=== PATIENT | female | born 1950 | race African-American/Black ===

== ENCOUNTER 2019-05-18 11:43 | Inpatient (IN) | payer MEDICARE, OTHER ==
[~2019-05-18] VITALS: Ht 154.9 cm; Wt 46.2 kg
[2019-05-18] MEDS ORDERED: NORVASC5 MG PO (12:39)
[2019-05-18] MEDS ORDERED: CYPROHEPTAD2 MG/5 ML PO (12:39)
[2019-05-18] MEDS ORDERED: DONEPEZIL HCL5 MG PO (12:40)
[2019-05-18] MEDS ORDERED: LINZESS145 MCG PO (12:41)
[2019-05-18] MEDS ORDERED: LEVEMIR IN100 UNITS/ SC (12:41)
[2019-05-18] MEDS ORDERED: COZAAR100 MG PO (12:42)
[2019-05-18] MEDS ORDERED: GEODON20 MG PO (12:42)
[2019-05-18] MEDS ORDERED: MELATONIN5 MG PO (12:42)
[2019-05-18 13:27] LABS: BASOPHILS 0.2 % (0-2); EOSINOPHILS 0.7 % (0-7); HEMATOCRIT 29.8 % (36.0-48.0); HEMOGLOBIN 10.4 g/dL (12-16); LYMPHOCYTES 25.4 % (15-50); MCH 29.9 pg (26.0-34.0); MCHC 34.9 g/dL (31.0-37.0); MCV 85.6 fL (80.0-100.0); MEAN PLATELET VOLUME 10.1 fL (7.4-10.4); MONOCYTES 8.6 % (2-11); NEUTROPHILS 64.1 % (40-80); PLATELET COUNT 165 10x3/uL (130-400); RBC 3.48 10x6/uL (4.00-5.40); RDW 12.5 % (11.5-14.5); WBC 4.2 10x3/uL (4.8-10.8)
[2019-05-18 13:35] LABS: ALBUMIN 3.7 g/dL (3.4-5.0); ALKALINE PHOSPHATASE 66 U/L (46-116); ALT (SGPT) 15 U/L (10-68); BILIRUBIN - TOTAL 1.21 mg/dL (0.2-1.3); CALC OSMOLALITY 283 mosm/kg (275-300); CALCIUM 9.4 mg/dL (8.5-10.1); CARBON DIOXIDE 31.8 mmol/L (21.0-32.0); CHLORIDE - SERUM 101 mmol/L (98-107); CREATININE - SERUM 0.8 mg/dL (0.6-1.3); GLUCOSE 98 mg/dL (74-106); POTASSIUM - SERUM 3.7 mmol/L (3.5-5.1); PROTEIN - SERUM 7.9 g/dL (6.4-8.2); SODIUM 141 mmol/L (136-145); UREA NITROGEN 22 mg/dL (7-18); eGFR NON AFRICAN AMERICAN 76 mL/min (90-120)
[2019-05-18 14:00] VITALS: BP 164/80
[2019-05-18 14:30] LABS: UDS - AMPHET NEGATIVE QUAL (NEGATIVE); UDS - BARB NEGATIVE QUAL (NEGATIVE); UDS - BENZO NEGATIVE QUAL (NEGATIVE); UDS - COCAINE NEGATIVE QUAL (NEGATIVE); UDS - OPIATE NEGATIVE QUAL (NEGATIVE); UDS - PCP NEGATIVE QUAL (NEGATIVE); UDS - THC NEGATIVE QUAL (NEGATIVE)
[2019-05-18 14:53] LABS: APPEARANCE SL CLDY (CLEAR); COLOR YELLOW (YELLOW); GLUCOSE NEGATIVE (NEGATIVE); KETONE NEGATIVE (NEGATIVE); NITRITE NEGATIVE (NEGATIVE); PROTEIN TRACE mg/dL (NEGATIVE); UROBILINOGEN NORMAL (NORMAL)
[2019-05-18 14:54] LABS: BILIRUBIN NEGATIVE (NEGATIVE)
[2019-05-18 14:56] LABS: BACTERIA MANY /hpf (NONE SEEN); RED CELLS - URINE RARE /hpf (0-5); WHITE CELLS - URINE 0-5 /hpf (0-5)
[2019-05-18 16:00] VITALS: BP 167/72
[2019-05-18 21:25] LABS: CHOL - HDL RATIO 3.8 ratio (2.3-4.1); LDL-HDL RATIO 2.5 ratio (1.5-3.5); THYROID STIMULATING HORMONE 2.85 uIU/mL (0.36-3.74)
[2019-05-19 02:47] VITALS: BP 121/55; BMI 19.6
[2019-05-19 05:19] VITALS: BP 121/55
[2019-05-19 07:53] VITALS: BP 127/56
[2019-05-19 09:04] VITALS: BMI 19.6
[2019-05-19 21:00] VITALS: BP 75/31
[2019-05-20 07:13] LABS: RAPID PLASMA REAGIN Non Reactive (Non Reactive)
--- NOTE | 2019-05-20 09:30 | PSY ---
PATIENT NAME:ALESHIA WADE MEDICAL RECORD: [id number] : 52 LOCATION:ShaniquaCHEVY Sanchez7 ADMISSION DATE: 05/18/19 ACCOUNT: [id number] PSYCHIATRIC EVALUATION DATE OF EVALUATION: 05/19/19 IDENTIFYING DATA: The patient is 68 years old and she is admitted to the hospital secondary to confusion. CHIEF COMPLAINT: None. HISTORY OF PRESENT ILLNESS: The patient is a 68-year-old woman who appears much older than her stated age and is clearly very confused and only oriented to person. She is answering questions, but not very well. She can answer general questions about how do you feel and is there anything bothering you, things that can be answered in a sort of socially neutrally way, but when asked specifics about herself or her background, she is lost. I am told that she presented to the Emergency Room and the family was concerned because she had been so confused. Apparently, she had been having some trouble performing her ADLs along with some right-sided tremors that were evaluated in the Emergency Room and she was cleared medically and neurologically. PAST MEDICAL AND SURGICAL HISTORY: Significant for stroke, diabetes, hypertension, and hysterectomy. PAST PSYCHIATRIC HISTORY: Significant for an established diagnosis of dementia. FAMILY HISTORY: Noncontributory. ALLERGIES: No known drug allergies. CURRENT MEDICATIONS: Include, Norvasc, Aricept, Linzess, Cozaar, melatonin, and Geodon. SOCIAL HISTORY: The patient does not smoke and does not drink and never has. She has never used recreational drugs either. She is . She has 2 adult children who are involved with her care. Apparently, there is something of split in the family. One of the children and the and other child are arguing about what needs to be done and how she needs to be helped. I am not sure at this point about the specifics of it, but apparently the and the youngest child want her here, evaluated and treated; there is another child who does not and has been angry about the placement. MENTAL STATUS EXAMINATION: The patient is awake, alert, and oriented to person only. Thought processes are very disorganized and she cannot fully cooperate with memory, concentration, or abstraction ability testing, but based on context they are deemed to be significantly and seriously impaired. Her mood is flat. Her affect is appropriate. Thought processes are disorganized. She denies that she would seek to harm herself or others. She denies psychotic symptoms even though I do think she understood the question and she denies that she would want to hurt anyone else. ASSETS: Supportive family members. LIABILITIES: Limited insight. 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 AXIS II: None. AXIS III: Hypertension, status post stroke, diabetes, osteoarthritis, hyperlipidemia, chronic constipation anemia, and physical debility. AXIS IV: Moderate. AXIS V: Global assessment of functioning is 20. PLAN: At this time, the patient is admitted to the hospital secondary to confused, agitated behavior. She will be comprehensively evaluated from both a medical, psychological, and social standpoint. She will be treated with both mood stabilizing and memory enhancing medications. Her long-term prognosis is guarded. TRANSINT:[id number] Voice Confirmation ID: [id number] DOCUMENT ID: [id number] REHAN SCHMIDT MD at 0930 CC: [id number] DICTATION DATE: 05/19/19 171 PLASTIC SURGERY SPECIALIST: 05/19/19 2049 ADM IN [facility] [address] [place] [address]
[2019-05-20 13:07] VITALS: BP 113/49
[2019-05-21 03:11] VITALS: BP 123/55
[2019-05-21 10:33] VITALS: BP 111/55
--- NOTE | 2019-05-21 10:49 | PN ---
PATIENT:ALESHIA WADE MEDICAL RECORD: [id number] LOCATION:ShaniquaNicoleMARLYN HubbardMarkos ADMISSION DATE: 05/18/19 PROGRESS NOTE DATE OF SERVICE: 05/20/2019 SUBJECTIVE: The patient's case was discussed with staff. She has no new complaint. OBJECTIVE: The patient denies intent to harm herself or others. She tolerates her medicines well. ASSESSMENT: Vascular dementia. PLAN: Brief supportive and educational interventions were made. Long-term prognosis is guarded. TRANSINT:[id number] Voice Confirmation ID: [id number] DOCUMENT ID: [id number] REHAN SCHMIDT MD at 1049 CC: [id number] DICTATION DATE: 05/20/19 1132 AGRICULTURAL EDUCATION INSTRUCTOR: 05/20/19 1404 ADM IN [address] [address]
[2019-05-21 20:00] VITALS: BP 129/51
[2019-05-22 07:00] VITALS: BP 126/54
[2019-05-22 14:15] VITALS: Ht 154.9 cm; Wt 46.2 kg
--- NOTE | 2019-05-22 16:47 | PN ---
PATIENT:ALESHIA WADE MEDICAL RECORD: [id number] LOCATION:PADMINI Hubbard112 ADMISSION DATE: 05/18/19 PROGRESS NOTE DATE OF SERVICE: 05/21/2019 SUBJECTIVE: The patient's case was discussed with staff. She has no new complaint. OBJECTIVE: The patient is minimally arousable. She has very limited insight about her situation. ASSESSMENT: No change in diagnoses. PLAN: Supportive and educational interventions were made. Long-term prognosis is guarded. TRANSINT:[id number] Voice Confirmation ID: [id number] DOCUMENT ID: [id number] REHAN SCHMIDT MD at 1647 CC: [id number] DICTATION DATE: 05/21/19 1204 RECORDS ANALYST: 05/21/19 1525 ADM IN [address] [address]
[2019-05-22 20:03] VITALS: BP 112/53
[2019-05-23 07:00] VITALS: BP 124/49
--- NOTE | 2019-05-23 14:57 | PN ---
PATIENT:ALESHIA WADE MEDICAL RECORD: [id number] LOCATION:ShaniquaNicoleMARLYN ShaniquaNicole112 ADMISSION DATE: 05/18/19 PROGRESS NOTE DATE OF SERVICE: 05/22/2019 SUBJECTIVE: The patient's case was discussed with staff. She has no new complaint. OBJECTIVE: The patient is actually awake and somewhat conversant with me today. She is not making very much sense, but she is talking to me and answering questions, which I consider to be an improvement. ASSESSMENT: No change in diagnoses. PLAN: The patient has an advanced dementia despite her relative youth. I do think she is absolutely in need of 36-wtkh-p-day supervision. I do not know if her psychosocial background has been fully assessed, but I will discuss it at tomorrow's team meeting with the social media assistant and efforts will be made to place her in the least restrictive environment that can meet her needs. TRANSINT:[id number] Voice Confirmation ID: [id number] DOCUMENT ID: [id number] REHAN SCHMIDT MD at 1457 CC: [id number] DICTATION DATE: 05/22/19 170 PATROL DEPUTY SHERIFF: 05/22/19 192 ADM IN [facility] [address] [place] [id number]
[2019-05-23 21:25] VITALS: BP 95/47
[2019-05-24 10:13] VITALS: BP 130/62
--- NOTE | 2019-05-24 14:55 | PN ---
PATIENT:ALESHIA WADE MEDICAL RECORD: [id number] LOCATION:PADMINI Hubbard112 ADMISSION DATE: 05/18/19 PROGRESS NOTE DATE OF SERVICE: 05/23/2019 SUBJECTIVE: The patient's case was discussed with staff. She has no new complaint. OBJECTIVE: The patient is in good behavioral control. She has limited insight about her condition. She tolerates her medicines well. ASSESSMENT: No change in diagnoses. PLAN: Supportive and educational interventions were made. The patient will be maintained on current medicines. She is not eating adequately, but is on Megace. TRANSINT:[id number] Voice Confirmation ID: [id number] DOCUMENT ID: [id number] REHAN SCHMIDT MD at 1455 CC: [id number] DICTATION DATE: 05/23/19 1520 MANUFACTURING JOB TITLES: 05/23/19 1647 ADM IN [place] [id number] [place] [id number]
[2019-05-24 22:52] VITALS: BP 100/50
[2019-05-25 09:00] VITALS: BP 124/60
--- NOTE | 2019-05-25 13:17 | PN ---
PATIENT:ALESHIA WADE MEDICAL RECORD: [id number] LOCATION:ShaniquaCARMELITASienna HubbardMarkos ADMISSION DATE: 05/18/19 PROGRESS NOTE DATE OF SERVICE: 05/24/2019 SUBJECTIVE: The patient's case was discussed with staff. She has no new complaint. OBJECTIVE: The patient actually spoke to me a little today. She is still not interacting to any appreciable degree. She is eating and sleeping reasonably well, but clearly is severely impaired cognitively. This is an advanced dementia and in my opinion comfort care measures would be appropriate for her. TRANSINT:[id number] Voice Confirmation ID: [id number] DOCUMENT ID: [id number] REHAN SCHMIDT MD at 1317 CC: [id number] DICTATION DATE: 05/24/19 1523 READING PROFESSOR: 05/24/19 1751 ADM IN [facility] [address] [place] [address]
[2019-05-25] MEDS ORDERED: FLORAJEN3 CAPS460 MG PO (15:55)
[2019-05-25] MEDS ORDERED: Senokot TAB PO (15:55)
[2019-05-25] MEDS ORDERED: PEPCID PO (15:55)
[2019-05-25] MEDS ORDERED: VITAMIN D5000 UNIT PO (15:56)
[2019-05-25] MEDS ORDERED: Megace ES [CHEMO] PO (15:56)
[2019-05-25 19:31] VITALS: BP 110/50
[2019-05-26 09:56] VITALS: BP 96/50
--- NOTE | 2019-05-26 15:42 | PN ---
PATIENT:ALESHIA WADE MEDICAL RECORD: [id number] LOCATION:PADMINI Sanchez ADMISSION DATE: 05/18/19 PROGRESS NOTE DATE OF SERVICE: 05/25/2019 SUBJECTIVE: The patient's case was discussed with staff. She has no new complaint. OBJECTIVE: The patient is nonverbal today. She is awake. She is following me with her eyes. She shakes her head yes and no little bit. Despite my best efforts, she will not talk to me. She did not eat anything yesterday. She is losing weight and she can ill afford to do so. I have started her on Megace. I think her condition is quite advanced and her prognosis is exceedingly poor. This is a very advanced dementia and I am going to refer her for evaluation by hospice. TRANSINT:[id number] Voice Confirmation ID: [id number] DOCUMENT ID: [id number] REHAN SCHMIDT MD at 1542 CC: [id number] DICTATION DATE: 05/25/19 1451 SHOULDER BONER: 05/25/19 1711 ADM IN [facility] [address] [place] [address]
[2019-05-26 20:00] VITALS: BP 120/53
[2019-05-27 10:51] VITALS: BP 115/55
--- NOTE | 2019-05-27 12:25 | PN ---
PATIENT:ALESHIA AMADO MEDICAL RECORD: [id number] LOCATION:PADMINI Hubbard112 ADMISSION DATE: 05/18/19 PROGRESS NOTE DATE OF SERVICE: 05/26/2019 SUBJECTIVE: The patient's case was discussed with staff. She has no new complaint. OBJECTIVE: The patient is withdrawn, arousable, but minimally interactive. ASSESSMENT: No change in diagnoses. PLAN: The patient was scheduled for discharge today. Unfortunately, there is an ongoing problem or issue with her family and the patient is not going to be discharged today. There is a big disagreement between the who has power of attorney general and several siblings who agree with the and a daughter who does not like the treatment that she is receiving and this particular daughter called the hospice unit and according to what I heard made some accusations or threats and they have dropped Aleshia from their case load. This is unfortunate, but I have discussed the situation with the treatment team and our social work msw is going to try to make other arrangements for Mrs. Amado to get the palliative care that she needs and unfortunately this is a Wednesday afternoon and so does not look as though any of this can be arranged before Wednesday. TRANSINT:[id number] Voice Confirmation ID: [id number] DOCUMENT ID: [id number] REHAN SCHMIDT MD at 1225 CC: [id number] DICTATION DATE: 05/26/19 1614 TRADING SPECIALIST: 05/26/19 2217 ADM IN [place] [id number] [place] [address]
[2019-05-27 20:00] VITALS: BP 112/46
[2019-05-28 07:00] VITALS: BP 134/66
--- NOTE | 2019-05-28 12:29 | PN ---
PATIENT:ALESHIA WADE MEDICAL RECORD: [id number] LOCATION:PADMINI HubbardMarkos ADMISSION DATE: 05/18/19 PROGRESS NOTE DATE OF SERVICE: 05/27/2019 SUBJECTIVE: The patient's case was discussed with staff. She has no new complaint. OBJECTIVE: The patient is in good behavioral control. She has poor insight about her condition. She is tolerating her medicines. ASSESSMENT: No change in diagnoses. PLAN: Current medicines and therapies have been reviewed, both will be maintained. TRANSINT:[id number] Voice Confirmation ID: [id number] DOCUMENT ID: [id number] REHAN SCHMIDT MD at 1229 CC: [id number] DICTATION DATE: 05/27/19 1233 FIBER DRIER OPERATOR: 05/27/19 1446 ADM IN [place] [id number] [place] [address]
[2019-05-28 20:15] VITALS: BP 114/70
[2019-05-29 07:00] VITALS: BP 130/52
--- NOTE | 2019-05-29 14:28 | PN ---
PATIENT:ALESHIA AMADO MEDICAL RECORD: [id number] LOCATION:ShaniquaNicoleMARLYN Hubbard112 ADMISSION DATE: 05/18/19 PROGRESS NOTE DATE OF SERVICE: 05/28/2019 SUBJECTIVE: The patient's case was discussed with staff. She has no new complaint. OBJECTIVE: The patient is minimally interactive. She is severely impaired cognitively and it is my anticipation that she is still in need of comfort care measures. I am unsure how those arrangements are going to be made because of some problems associated with the family conflict as the daughter is in disagreement with the and the other children. It is my opinion that Aleshia Amado has a very advanced end-stage dementia that she is not going to have significant improvement and that I think it is appropriate to provide her with comfort care measures. TRANSINT:[id number] Voice Confirmation ID: [id number] DOCUMENT ID: [id number] REHAN SCHMIDT MD at 1428 CC: [id number] DICTATION DATE: 05/28/19 1242 BUS AND RAIL OPERATOR: 05/28/19 1512 ADM IN [place] [id number] [place] [id number]
[2019-05-29 23:46] VITALS: BP 122/56
[2019-05-30 09:43] VITALS: BP 112/53
--- NOTE | 2019-05-30 15:33 | PN ---
PATIENT:ALESHIA WADE MEDICAL RECORD: [id number] LOCATION:PADMINI Hubbard112 ADMISSION DATE: 05/18/19 PROGRESS NOTE DATE OF SERVICE: 05/29/2019 SUBJECTIVE: The patient's case was discussed with staff. She has no new complaint. OBJECTIVE: The patient is in good behavioral control with limited insight about her condition. She tolerates her medicines well. ASSESSMENT: No change in diagnoses. PLAN: The patient is going to be transitioned out of the hospital today. She is in need of 24-hour a day care and is in need of palliative care measures. TRANSINT:[id number] Voice Confirmation ID: [id number] DOCUMENT ID: [id number] REHAN SCHMIDT MD at 1533 CC: [id number] DICTATION DATE: 05/29/19 1520 AUTO SERVICE MECHANIC: 05/29/19 1600 ADM IN [place] [id number] [place] [address]
[2019-05-30 20:31] VITALS: BP 130/75
[2019-05-31 08:38] VITALS: BP 157/101
--- NOTE | 2019-05-31 11:35 | PN ---
PATIENT:ALESHIA WADE MEDICAL RECORD: [id number] LOCATION:PADMINI Hubbard112 ADMISSION DATE: 05/18/19 PROGRESS NOTE DATE OF SERVICE: 05/30/2019 SUBJECTIVE: The patient's case was discussed with staff. She has no new complaint. OBJECTIVE: The patient is in good behavioral control with limited insight about her condition. She tolerates her medicines well. ASSESSMENT: No change in diagnoses. PLAN: Current medicines and therapies have been reviewed. I anticipate she can be discharged home soon as soon as the in-home services are in place. TRANSINT:[id number] Voice Confirmation ID: [id number] DOCUMENT ID: [id number] REHAN SCHMIDT MD at 1135 CC: [id number] DICTATION DATE: 05/30/19 1610 TROMPER: 05/30/19 1633 ADM IN [place] [address] [place] [address]
[2019-05-31 20:00] VITALS: BP 129/56
--- NOTE | 2019-06-01 10:08 | PN ---
PATIENT:ALESHIA WADE MEDICAL RECORD: [id number] LOCATION:PADMINI Sanchez ADMISSION DATE: 05/18/19 PROGRESS NOTE DATE OF SERVICE: 05/31/2019 SUBJECTIVE: The patient's case was discussed with staff. She has no new complaint. OBJECTIVE: The patient is in good behavioral control, but severely impaired cognitively. She most definitely is end-stage with her dementia. This is exceptionally unfortunate for anyone, but even more so in a woman who is relatively young at just 69 years. We are going to maintain comfort care measures. Apparently, there is some sort of litigation between the and some of the kids and a daughter over who is going to control medical decision making about her. I know our administration and brand coordinator are involved. This is an area where I am going to leave it to brand coordinator to figure out and I will just care for her as best as I can with her condition until other instructions are provided to me and at this point, I have to say this situation is grave. She is end-stage. She is not eating well. I would not anticipate her being alive in 6 months, certainly not in a year. TRANSINT:[id number] Voice Confirmation ID: [id number] DOCUMENT ID: [id number] REHAN SCHMIDT MD at 1008 CC: [id number] DICTATION DATE: 05/31/19 1247 COMMUNICATIONS SUPERVISOR: 05/31/19 1253 ADM IN [facility] [address] [place] [address]
[2019-06-01 10:46] VITALS: BP 99/52
[2019-06-01] MEDS ORDERED: NORVASC2.5 MG PO (11:01)
[2019-06-01] MEDS ORDERED: Cozaar PO (11:01)
--- NOTE | 2019-06-03 12:39 | PN ---
PATIENT:ALESHIA WADE MEDICAL RECORD: [id number] LOCATION:PADMINI Hubbard112 ADMISSION DATE: 05/18/19 PROGRESS NOTE DATE OF SERVICE: 06/01/2019 SUBJECTIVE: The patient's case was discussed with staff. She has no new complaint. OBJECTIVE: The patient is very withdrawn. She is minimally interactive. She is minimally eating. She is taking her medicines. ASSESSMENT: No change in diagnoses. PLAN: There has been a development in this ongoing situation that is not related to her clinical treatment. Apparently, the daughter and her beauty culturist have gotten guardianship of the patient or power of beauty culturist more accurately and until the and his beauty culturist can challenge this or have it overturned, our administration tells us that the daughter is in charge of care. The daughter wants her discharged today and is going to care for her at home. This does not rise to a level of inappropriateness that requires a report to Adult Protective Services, but it is not something I agree with. I think she needs a great deal of care, particularly comfort care and given the situation, there is no alternative, but to discharge her as the POA has requested. I am going to maintain her on current medicines even though I am aware from information from the daughter that the daughter does not believe she needs medication. I am going to discharge her on those medications because it is my opinion that she will benefit from them. TRANSINT:[id number] Voice Confirmation ID: [id number] DOCUMENT ID: [id number] REHAN SCHMIDT MD at 1239 CC: [id number] DICTATION DATE: 06/01/19 1024 REAL ESTATE CLOSER: 06/01/19 1032 DIS IN 06/01/19 [facility] [address] [place] [address]
--- NOTE | 2019-06-08 15:02 | DS ---
PATIENT:ALESHIA WADE :52 MEDICAL RECORD: [id number] DISCHARGE SUMMARY ADMISSION DATE: 05/18/19 DISCHARGE DATE: 06/01/19 IDENTIFYING DATA: The patient is 68 years old and she was admitted to the hospital on a voluntary basis because of confusion. The patient appears dramatically older than her stated age and despite her relative youth, she is severe and advanced in her dementia. She was only oriented to person and she did answer questions, but not very accurately. Apparently, she presented to the Emergency Room with her family and they were concerned because she had been so confused. She was having trouble performing ADLs and she was cleared medically and neurologically by the Emergency Room. HOSPITAL COURSE: The patient was admitted to the hospital and found to have a vascular dementia. The dementia was advanced. Efforts to improve her cognition and manageability were of little or no success. There was also an ongoing and very bitter conflict between one of the daughters and the and other children who were siding with the , but the primary conflict was between the and this particular daughter. The daughter was able to get power of scheduling analyst and subsequently requested that the patient be discharged. It was my opinion that the patient had an advanced and irreversible dementia about which little could be done and it was further in my opinion that the patient was in need of palliative or comfort care measures. The daughter removed her from the hospital and was going to either care for her or seek another opinion. The daughter will also be responsible for followup care. 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 AXIS II: None. AXIS III: Hypertension, status post stroke, diabetes, osteoarthritis, hyperlipidemia, chronic constipation, anemia and physical debility. AXIS IV: Moderate. AXIS V: Global assessment of functioning is 25. PLAN: At the time of discharge, the patient did not have any behaviors that would represent a direct or eminent risk to herself or others. She was tolerating her medications well and as mentioned, her cognition did not really improve to any appreciable degree and almost heroic efforts were being employed to get adequate water and food into the patient. Her prognosis is unfortunately quite poor. Her dementia is advanced. Followup is going to be arranged by the daughter who requested discharge as power of scheduling analyst. TRANSINT:[id number] Voice Confirmation ID: [id number] DOCUMENT ID: [id number] REHAN SCHMIDT MD at 1502 CC: [id number] DICTATION DATE: 06/07/19 1511 SUPERVISOR ENGRAVING: 06/08/19 0051 DIS IN 06/01/19 [place] [id number] [facility] [place] [address]
== END 2019-06-01 15:20 | disposition home health service (06) | DRG 884 ==
LOC: D.ER 11:43 → D.PSYCH 17:34
PROVIDERS: Family Medicine; ADMIT Psychiatry & Neurology Psychiatry; ATTEND Psychiatry & Neurology Psychiatry
DX: F01.51 Vascular dementia, unspecified severity, with behavioral disturbance (principal); N39.0 Urinary tract infection, site not specified; I10 Essential (primary) hypertension; E11.9 Type 2 diabetes mellitus without complications; E78.5 Hyperlipidemia, unspecified; K59.09 Other constipation; D64.9 Anemia, unspecified; R53.81 Other malaise; M19.90 Unspecified osteoarthritis, unspecified site; E55.9 Vitamin D deficiency, unspecified; K29.70 Gastritis, unspecified, without bleeding; R63.0 Anorexia; R13.10 Dysphagia, unspecified